=== PATIENT | male | born 1930 | race Caucasian/White ===

== ENCOUNTER 2016-07-18 02:54 | Emergency (ER) | payer MEDICARE, OTHER ==
[2016-07-18] MEDS ORDERED: NS 0.9% 1000 ML* 1,000 ML IV ONE (03:00)
[2016-07-18] MEDS ORDERED: Pantoprazole IV* 80 MG in NS 0.9% 250 ML* 250 ML IV SCH (03:00)
[2016-07-18] MEDS ORDERED: Ondansetron INJ* 2 MG/ML VIAL IV ONE (03:00)
[2016-07-18] MEDS ORDERED: Pantoprazole IV* 40 MG IV ONE (03:00)
[2016-07-18] MEDS ORDERED: Octreotide Acetate* 50 MCG in NS 0.9% 50 ML* 50 ML IVPB ONE ×2 (03:05→05:00)
[2016-07-18] MEDS ORDERED: Octreotide Acetate* 50 MCG/ML ML IV SLOW PU ONE (03:05)
[2016-07-18] MEDS ORDERED: NS 0.9% 50 ML* 0 ML ONE (03:12)
[2016-07-18 03:21] LABS: Hematocrit 16 % (42-52); Mean Corpuscular HGB Conc 30 g/dl (31-36); Mean Corpuscular Hemoglobin 22 pg (27-31); Mean Corpuscular Volume 71 fL (80-94); Mean Platelet Volume 8 um3 (7.4-10.4); Red Blood Count 2.26 10^6/ul (4.0-5.4); Red Cell Distribution Width 22 % (10.5-15); White Blood Count 10.5 10^3/ul (3.5-10.8)
[2016-07-18 03:22] LABS: Comments Flag Yes; Hemoglobin 4.9 g/dl (14.0-18.0)
[2016-07-18 03:24] LABS: Add Diff/Slide Review? Slide Review Added
[2016-07-18] MEDS ORDERED: NS 0.9% 50 ML* 50 ML ONE (03:27)
[2016-07-18 03:38] LABS: Albumin 3.1 g/dL (3.2-5.2); BUN/Creatinine Ratio 69.6 (8-20); Calcium 8.8 mg/dL (8.6-10.3); EGFR African American 100.6 (>60); EGFR Non-African American 78.2 (>60); Potassium 3.6 mmol/L (3.5-5.0); Total Bilirubin 0.6 mg/dL (0.2-1.0); Total Protein 5.1 g/dL (6.4-8.9)
[2016-07-18 03:41] LABS: Troponin I 0.01 ng/mL (<0.04)
[2016-07-18 03:57] LABS: Add Path Review? YES; Microcytosis 1+; Schistocytes 1+
[2016-07-18 04:21] VITALS: BP 107/56
--- NOTE | 2016-07-18 04:23 | ED ---
Rachel Henao SooYoung, scribed for Meño Lerma on 07/18/16 at 0309 . 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 According to EMS: Pt was unresponsive, possibly V-fib, for a few minutes at arrival on the scene. Before initiating CPR, pt became responsive, and began hemesis. Pt is on Xiralto, last took it yesterday AM. Daily drinker. Non-smoker. Pt states not feeling well today. He denies abd pain. - History of Current Complaint Chief Complaint: EDGIBleed Stated Complaint: GI BLEED Hx Obtained From: Patient, EMS Onset/Duration: Started Hours Ago Timing: Intermittent Pain Intensity: 0 - out of 10 - Allergy/Home Medications Allergies/Adverse Reactions: Allergies Allergy/AdvReac Type Severity Reaction Status Date / Time Chocolate Allergy Rash Verified 06/03/14 09:12 PMH/Surg Hx/FS Hx/Imm Hx Previously Healthy: No Endocrine/Hematology History: Denies: Hx Diabetes, Hx Thyroid Disease Cardiovascular History: Reports: Hx Hypercholesterolemia, Hx Hypertension, Hx Pacemaker/ICD Respiratory History: Denies: Hx Asthma, Hx Chronic Obstructive Pulmonary Disease (COPD) GI History: Denies: Hx Ulcer Musculoskeletal History: Reports: Hx Back Problems - DJD Sensory History: Reports: Hx Cataracts, Hx Glaucoma Opthamlomology History: Reports: Hx Cataracts, Hx Glaucoma - Cancer History Cancer Type, Location and Year: skin cancer removed, basal cell - Surgical History Surgery Procedure, Year, and Place: 2005 back surgery, tripple bypass 1998. hernia repair Infectious Disease History: No Infectious Disease History: Denies: Hx Clostridium Difficile, Hx Hepatitis, Hx Human Immunodeficiency Virus (HIV), Hx of Known/Suspected MRSA, Hx Shingles, Hx Tuberculosis, Hx Known/ Suspected VRE, Hx Known/Suspected VRSA, History Other Infectious Disease, Traveled Outside the [place] in Last 30 Days - Social History Occupation: Retired Lives: With Family Alcohol Use: Daily Alcohol Amount: couple of drinks, wine with dinner, Pretty steady Substance Use Type: Reports: None Smoking Status (MU): Former Smoker Type: Cigars Review of Systems Positive: Vomiting - with blood. Negative: Abdominal Pain All Other Systems Reviewed And Are Negative: Yes Physical Exam Triage Information Reviewed: Yes Vital Signs On Initial Exam: Initial Vitals Temp Pulse Resp BP Pulse Ox 96.6 F 69 17 109/56 97 07/18/16 02:58 07/18/16 02:58 07/18/16 02:58 07/18/16 02:58 07/18/16 02:58 Vital Signs Reviewed: Yes Appearance: Positive: Well-Appearing, No Pain Distress Skin: Positive: Warm, Dry, Pale, Other - VOMIT ON MOUTH, THROAT Head/Face: Positive: Normal Head/Face Inspection Eyes: Positive: EOMI, ANICETO ENT: Positive: Normal ENT inspection Neck: Positive: Supple, Nontender Respiratory/Lung Sounds: Positive: Clear to Auscultation, Breath Sounds Present Cardiovascular: Positive: RRR - DEFIB ON CHEST, Pulses are Symmetrical in both Upper and Lower Extremities Abdomen Description: Positive: Nontender, Soft, Distended Bowel Sounds: Positive: Present Musculoskeletal: Positive: Normal, Strength/ROM Intact - 4xFROM Neurological: Positive: Normal, Sensory/Motor Intact, Alert, Oriented to Person Place, Time Diagnostics - Vital Signs Vital Signs Temp Pulse Resp BP Pulse Ox 07/18/16 02:58 96.6 F 69 17 109/56 97 - Laboratory Result Diagrams: 07/18/16 03:06 07/18/16 03:06 Lab Statement: Any lab studies that have been ordered have been reviewed, and results considered in the medical decision making process. - EKG 1 EKG Interpretation: Paced rhythm GIGU Course/Dx - Course Assessment/Plan: Pt is an 85 y/o M who presents with blood in vomit. Pt given Zofran. Spoke with hospitalist, GI is not stone layer tonight. Planning pt transfer to [facility]. Spoke with hospitalist at [facility], ICU will accept. 0335: Blood tranfusions began, k-centra. - Diagnoses Provider Diagnoses: GI bleed, Anemia - Physician Notifications Discussed Care Of Patient With: 0315: Spoke with Dr. Torrez, hospitalist, recommended contacting GI. 0318: Was told there is no GI on-call from - by Dr. Sanders, GI. 0335: Spoke to Hospitalist at [facility], will call back after speaking to ICU. 0347: [facility] hospitalist, ICU will accept. Instructed by Provider To: Transfer - GI not available. To [facility] in [place]. - Critical Care Time Critical Care Time: 75-104 min Discharge - Discharge Plan Condition: Stable Disposition: TRANS HIGHER LVL OF CARE FAC Discharge Disposition Comment: GI on-call not available. Referrals: Vahid Garcia MD [Primary Care Provider] - The documentation as recorded by the Rachel mosher SooYoung accurately reflects the service I personally performed and the decisions made by , Meño Lerma.
== END 2016-07-18 04:18 | disposition short-term general hospital (02) ==
LOC: ED 02:54
DX: K92.2 Gastrointestinal hemorrhage, unspecified (principal); D64.9 Anemia, unspecified; Z87.891 Personal history of nicotine dependence; Z85.828 Personal history of other malignant neoplasm of skin; I10 Essential (primary) hypertension; E78.00 Pure hypercholesterolemia, unspecified; Z95.0 Presence of cardiac pacemaker
CPT/HCPCS: 80053; 83605; 83690; 84484; 85025; 85060; 85610; 85730; 86078; 86850; 86900; 86901; 86922; 93005; 96360; 96374; 96375; 99285; C9132; J2354; J2405; P9040

== ENCOUNTER 2018-04-08 10:19 | Emergency (ER) | payer MEDICARE, OTHER ==
[2018-04-08] MEDS ORDERED: Lidocaine 2% W/EPI 1:100,000* 20 ML MDV INJ ONE (10:45)
--- NOTE | 2018-04-08 10:47 | ED ---
Head Injury - HPI Summary HPI Summary: Pt. is a 87 y.o male who presents to the ER for a head injury that occurred just prior to arrival. Pt. lives at home with his . Pt. is not anticoagulated. Pt. states he was on ladder today cleaning off the roof when the ladder slipped on leaves and slowly slid down to the ground. Pt. states when he landed on the ground and lost balance and his the back of his head. Pt. states that he did not fall from any height and that he gradually slide down ladder to the ground. He denies LOC or headache. Last tetanus was 2013. Pt. denies h/a, neck pain, CP, SOB, abd pain, LE pain. Symptoms are moderate in severity. No current modifying factors. - History Of Current Complaint Chief Complaint: EDHeadInjury Stated Complaint: HEAD INJURY Time Seen by Provider: 04/08/18 10:35 Hx Obtained From: Patient Pain Intensity: 0 - Allergies/Home Medications Allergies/Adverse Reactions: Allergies Allergy/AdvReac Type Severity Reaction Status Date / Time MS Chocolate [Chocolate] Allergy Rash Verified 11/06/16 08:22 PMH/Surg Hx/FS Hx/Imm Hx Previously Healthy: Yes Endocrine/Hematology History: Denies: Hx Diabetes, Hx Thyroid Disease Cardiovascular History: Reports: Hx Hypercholesterolemia, Hx Hypertension, Hx Pacemaker/ICD Respiratory History: Denies: Hx Asthma, Hx Chronic Obstructive Pulmonary Disease (COPD) GI History: Denies: Hx Ulcer Musculoskeletal History: Reports: Hx Back Problems - DJD Sensory History: Reports: Hx Cataracts, Hx Glaucoma Opthamlomology History: Reports: Hx Cataracts, Hx Glaucoma - Cancer History Cancer Type, Location and Year: skin cancer removed, basal cell - Surgical History Surgery Procedure, Year, and Place: 2006 back surgery, tripple bypass 1998. hernia repair Infectious Disease History: No Infectious Disease History: Reports: Traveled Outside the [place] in Last 30 Days - [place] Denies: Hx Clostridium Difficile, Hx Hepatitis, Hx Human Immunodeficiency Virus (HIV), Hx of Known/Suspected MRSA, Hx Shingles, Hx Tuberculosis, Hx Known/ Suspected VRE, Hx Known/Suspected VRSA, History Other Infectious Disease - Family History Known Family History: Positive: Other - Noncontributory - Social History Occupation: Retired Lives: With Family Alcohol Use: Daily Alcohol Amount: 8 oz of wine/night Substance Use Type: Reports: None Smoking Status (MU): Former Smoker Type: Cigars Review of Systems Cardiovascular: Negative Negative: Chest Pain Respiratory: Negative Negative: Shortness Of Breath Gastrointestinal: Negative Negative: Abdominal Pain Musculoskeletal: Negative Positive: Other - Scalp laceration Positive: Headache. Negative: Weakness, Paresthesia, Numbness, Syncope, Slurred Speech All Other Systems Reviewed And Are Negative: Yes Physical Exam Triage Information Reviewed: Yes Vital Signs On Initial Exam: Initial Vitals Temp Pulse Resp BP Pulse Ox 97.3 F 60 18 184/87 97 04/08/18 10:28 04/08/18 10:28 04/08/18 10:28 04/08/18 10:28 04/08/18 10:28 Vital Signs Reviewed: Yes Appearance: Positive: Well-Appearing - Pt. sitting up in bed in NAD. present. Answers questions appropriately. Skin: Positive: Warm, Dry Head/Face: Positive: Other - Large hematoma with overlying 4cm deep linear laceration noted to the superior posterior scalp. Minimal active bleeding. Eyes: Positive: Normal, EOMI Neck: Positive: Supple Respiratory/Lung Sounds: Positive: Clear to Auscultation, Breath Sounds Present Cardiovascular: Positive: Normal, RRR Abdomen Description: Positive: Nontender, Soft Musculoskeletal: Positive: Normal, Strength/ROM Intact Neurological: Positive: Normal, Alert, Oriented to Person Place, Time, CN Intact II-III Psychiatric: Positive: Affect/Mood Appropriate - [place] Coma Scale Best Eye Response: 4 - Spontaneous Best Motor Response: 6 - Obeys Commands Best Verbal Response: 5 - Oriented Coma Scale Total: 15 Procedures - Laceration/Wound Repair 1 Location: head Description: Linear Anesthesia: Local - 5cc, 2.0%, [place] Length, Depth and Shape: 4cm linear full thickness Betadine Prep?: No - hibiclens Irrigated w/ Saline (ccs): 100 Laceration/Wound Explored: clean Closure: Single Layer, Novinger #__ - 7 Layer Closure?: No Sterile Dressing Applied?: No Diagnostics - Vital Signs Vital Signs Temp Pulse Resp BP Pulse Ox 04/08/18 10:28 97.3 F 60 18 184/87 97 - Laboratory Lab Statement: Any lab studies that have been ordered have been reviewed, and results considered in the medical decision making process. Head Injury Course/Dx Course Of Treatment: Patient presenting for mechanical fall and head injury. He is neurologically intact. Patient ambulated to room without difficulty or pain. Patient has no other injuries other than scalp hematoma and laceration. Brain and neck CT are negative for acute findings, reading per radiology. Wound was repaired as noted above. Staple removal in 7 days. Keep wound clean and dry. Ice intermittently. Tylenol for pain as directed. To return to the ER symptoms change or worsen. Patient and understand and agree with plan. - Diagnoses Differential Diagnosis/HQI/PQRI: Cerebral Contusion, Cervical Sprain, Concussion Without LOC, Contusion, Hematoma, Intracranial Bleed, Laceration, Skull Fracture Provider Diagnoses: Scalp hematoma, Scalp laceration Discharge - Sign-Out/Discharge Documenting (check all that apply): Patient Departure - Discharge Plan Condition: Good Disposition: HOME Patient Education Materials: Head Injury (ED), Staple Care (ED) Referrals: Vahid Garcia MD [Primary Care Provider] - Additional Instructions: Schedule a follow up appointment with your PCP Staple removal in 7 days Keep wound clean and dry Tylenol for pain as directed Ice intermittently Return to ER if symptoms change or worsen - Billing Disposition and Condition Condition: GOOD Disposition: Home
[2018-04-08] MEDS ORDERED: Lidocaine 2% EPI 1:200000 MPF*10-20 ML VIAL ONE (10:56)
--- NOTE | 2018-04-08 11:22 | RAD ---
Indication: Head injury after fall. CT of the brain performed without IV contrast. Ventricular structures are midline. No midline shift is noted. The extra-axial spaces are unremarkable. There is no evidence of intracranial mass or hemorrhage. No other high or low density lesion is noted. Scalp hematoma is noted over the left parietal area posteriorly without evidence of underlying calvarial fracture. IMPRESSION: No intracranial mass or hemorrhage is noted. Scalp hematoma noted.
--- NOTE | 2018-04-08 11:30 | RAD ---
HISTORY: fall, trauma COMPARISONS: None TECHNIQUE: Multiple contiguous axial CT scans were obtained of the cervical spine without intravenous contrast, with coronal and sagittal multiplanar reformations. FINDINGS: BRAIN: The visualized brain is unremarkable CENTRAL CANAL: Evaluation of the central canal is limited on CT technique; however, there is no obvious canalicular mass or epidural hemorrhage. ALIGNMENT: There is trace anterolisthesis of C3 on C4. VERTEBRAL BODIES: There is diffuse osteopenia. There is multilevel anterolateral marginal osteophyte formation. JOINTS: There is diffuse facet osteoarthritis. MUSCULATURE: Unremarkable INTERVERTEBRAL DISCS: There is diffuse loss of intervertebral disc height. AXIAL IMAGES: C2-C3: There is no osseous neural foraminal narrowing or central canal stenosis. C3-C4: There is moderate right and severe left neuroforaminal narrowing. There is no osseous central canal stenosis. C4-C5: There is left-sided uncovertebral facet hypertrophy. There is severe left neuroforaminal narrowing. There is no osseous central canal stenosis. C5-C6: There is bilateral uncovertebral hypertrophy. There is moderate left neural foraminal area. There is no osseous central canal stenosis. C6-C7: There is bilateral uncovertebral hypertrophy. There is severe right and mild left neuroforaminal narrowing. There is mild narrowing of the central canal. C7-T1: There is no osseous neural foraminal narrowing or central canal stenosis. SOFT TISSUES: The visualized soft tissues of the neck are unremarkable. The prevertebral fat stripe is preserved. OTHER: None. IMPRESSION: 1. OSTEOPENIA. 2. DEGENERATIVE DISC DISEASE AND OSTEOARTHRITIS OF THE CERVICAL SPINE DESCRIBED ABOVE. 3. NO ACUTE OSSEOUS INJURY TO THE CERVICAL SPINE.
[2018-04-08 12:13] VITALS: BP 124/61
== END 2018-04-08 12:12 | disposition home or self-care (01) ==
LOC: ED 10:19
DX: S00.03XA Contusion of scalp, initial encounter (principal); S01.01XA Laceration without foreign body of scalp, initial encounter; W19.XXXA Unspecified fall, initial encounter; Y92.9 Unspecified place or not applicable
CPT/HCPCS: 12002; 70450; 72125; 99283